=== PATIENT | female | born 2000 | race Caucasian/White ===

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

== ENCOUNTER 2019-02-28 23:10 | Emergency (ER) | payer OTHER ==
[~2019-02-28] VITALS: Ht 165.1 cm; Wt 86.2 kg
== END 2019-03-01 03:05 | disposition home or self-care (01) ==
LOC: ER 23:10
DX: J31.2 Chronic pharyngitis (principal); J06.9 Acute upper respiratory infection, unspecified

== ENCOUNTER 2019-06-04 22:59 | Emergency (ER) | payer OTHER ==
[~2019-06-04] VITALS: Ht 167.6 cm; Wt 81.6 kg
[2019-06-05] MEDS ORDERED: ZOFRAN4 MG PO (02:15)
[2019-06-05] MEDS ORDERED: PEPCID40 MG PO (02:15)
== END 2019-06-05 02:23 | disposition home or self-care (01) ==
LOC: ER 22:59
DX: K29.70 Gastritis, unspecified, without bleeding (principal)

== ENCOUNTER 2019-10-18 23:16 | Emergency (ER) | payer OTHER ==
[~2019-10-18] VITALS: Ht 165.1 cm; Wt 93.0 kg
[~2019-10-18 23:16] MED LIST changes: +PEPCID40 MG PO; +ZOFRAN4 MG PO
== END 2019-10-19 02:16 | disposition home or self-care (01) ==
LOC: ER 23:16
DX: O20.8 Other hemorrhage in early pregnancy (principal); Z3A.01 Less than 8 weeks gestation of pregnancy

== ENCOUNTER 2020-03-07 14:06 | Inpatient (IN) | payer OTHER ==
[~2020-03-07] VITALS: Ht 167.6 cm; Wt 93.0 kg
== END 2020-03-08 10:21 | disposition home or self-care (01) | DRG 833 ==
LOC: OBS/DEL 14:06 → LDR 17:54 → OBS/DEL 17:54 → LDR 03-08 10:21
PROVIDERS: ADMIT Specialist; ATTEND Specialist
PROC: 4A1HXCZ Monitoring of Products of Conception, Cardiac Rate, External Approach (ICD-10-PCS; principal; 2020-03-07)
PROC: BY4CZZZ Ultrasonography of Second Trimester, Single Fetus (ICD-10-PCS; 2020-03-07)
DX: O26.872 Cervical shortening, second trimester (principal); O26.892 Other specified pregnancy related conditions, second trimester; R10.2 Pelvic and perineal pain

== ENCOUNTER 2020-04-19 21:07 | Outpatient (CLI) | payer OTHER | END 2020-04-19 22:28 | disposition home or self-care (01) | LOC: OBS/DEL 21:07 | PROVIDERS: ATTEND Specialist | DX: O26.893 Other specified pregnancy related conditions, third trimester (principal); O26.873 Cervical shortening, third trimester; N89.8 Other specified noninflammatory disorders of vagina ==

== ENCOUNTER 2020-05-27 10:00 | Inpatient (IN) | payer OTHER ==
[~2020-05-27] VITALS: Ht 167.6 cm; Wt 2.7 kg
[2020-05-31] MEDS ORDERED: PRENATAL CAPLE1 EAC1 PO (06:21)
== END 2020-06-03 11:03 | disposition home or self-care (01) | DRG 788 ==
LOC: OB/GYN 05-31 06:07 → O/R 05-31 06:07 → OB/GYN 05-31 07:00
PROVIDERS: ADMIT Specialist; ATTEND Specialist
PROC: 4A1HXFZ Monitoring of Products of Conception, Cardiac Rhythm, External Approach (ICD-10-PCS; 2020-05-31)
PROC: 10D00Z1 Extraction of Products of Conception, Low, Open Approach (ICD-10-PCS; principal; 2020-05-31 07:00)
DX: O64.1XX0 Obstructed labor due to breech presentation, not applicable or unspecified (principal); Z3A.39 39 weeks gestation of pregnancy; Z37.0 Single live birth; Z20.822 Contact with and (suspected) exposure to COVID-19

== ENCOUNTER 2020-12-14 18:11 | Emergency (ER) | payer OTHER ==
[~2020-12-14] VITALS: Ht 165.1 cm; Wt 68.0 kg
[~2020-12-14 18:11] MED LIST changes: +PRENATAL CAPLE1 EAC1 PO
== END 2020-12-14 21:48 | disposition home or self-care (01) ==
LOC: ER 18:11
DX: K52.89 Other specified noninfective gastroenteritis and colitis (principal); Z20.822 Contact with and (suspected) exposure to COVID-19

== ENCOUNTER → 2020-12-25 | Emergency (ER) | payer OTHER ==
[~2020-12-25] VITALS: Ht 165.1 cm; Wt 63.5 kg
== END | disposition home or self-care (01) ==
LOC: ER 15:29 → EMR PED 15:29 → ER 20:50
DX: O26.899 Other specified pregnancy related conditions, unspecified trimester (principal); Z3A.00 Weeks of gestation of pregnancy not specified